=== PATIENT | female | born 2000 | race Hispanic/Latino ===

== ENCOUNTER → 2019-01-27 | Outpatient (CLI) | payer OTHER ==
--- NOTE | 2019-01-27 18:24 | REP ---
Focused right breast sonography: History: 18-year-old woman with mobile nontender heart nodule 1.6 cm in diameter 10-11 o'clock position in the upper outer quadrant of the right breast. No comparison imaging. Sonographic findings: Scanning through the area of palpable lump in the right upper outer quadrant at 11 o'clock demonstrates a 1.4 x 1.0 x 1.5 cm lobulated slightly heterogeneous solid hypoechoic nodule 1.1 cm from the nipple. There is enhanced through transmission. The nodule is not a simple cyst. It is most likely a fibroadenoma or hamartoma. Impression: BIRADS category three probably benign focused breast sonography. 6-month follow up sonography recommended. Electronically Signed by Adán Liu MD 01/27/2019 08:27 P
== END ==
LOC: M RAD 13:09
PROVIDERS: ATTEND Physician Assistant
DX: N63.21 Unspecified lump in the left breast, upper outer quadrant (principal)